=== PATIENT | female | born 2000 | race African-American/Black ===

== ENCOUNTER 2024-01-18 06:45 | Outpatient (REF) | payer BC, SELFPAY ==
--- NOTE | ~2024-01-18 | US_ITS ---
EXAMINATION: US PELVIS CLINICAL INFORMATION: Irregular menstruation and pelvic pain. LMP 12/04/2023. COMPARISON: None available. TECHNIQUE: Ultrasound of the pelvis is performed using both transabdominal and transvaginal transducers along with Doppler. Transvaginal imaging is performed due to inadequate visualization transabdominally. FINDINGS: Anteverted uterus with normal morphology measuring 8.2 x 3.3 x 3.7 cm. Questionable thickening and hyperemia of the upper myometrium/junctional zone. No uterine mass. Homogeneous endometrium measuring 0.7 cm in thickness. No focal endometrial abnormality. Normal morphology of the ovaries with symmetric size. The right ovary measures 3.1 x 2.1 x 2.2 cm, 7.3 mL and the left ovary measures 2.3 x 2.5 x 1.9 cm, 5.8 mL. No adnexal mass. No free fluid. US/US pelvic and transvaginal IMPRESSION: 1. Questionable thickening and hyperemia of the upper myometrium/junctional zone which could be seen with adenomyosis in the appropriate clinical context. 2. Otherwise, normal examination. Electronically signed by: Julia Mckenzie MD 01/18/2024 08:00 PM [facility] [place]
== END 2024-01-18 06:46 | disposition home or self-care (01) ==
LOC: HO.UMASIMG 06:45
PROVIDERS: Visit Provider Nurse Practitioner Women's Health
DX: N92.6 Irregular menstruation, unspecified (principal)
CPT/HCPCS: 76830; 76856